=== PATIENT | male | born 1955 | race Caucasian/White ===

== ENCOUNTER 2019-10-23 09:24 | Outpatient (CLI) | payer OTHER, SELFPAY ==
--- NOTE | 2019-10-23 09:39 | XRR_ITS ---
PROCEDURE INFORMATION: Exam: XR Left Shoulder Exam date and time: 10/23/2019 9:50 AM Age: 63 years old Clinical indication: Pain; Shoulder; Left; Prior surgery; Surgery type: Pacemaker; Additional info: Frozen shoulder, pain x 2 months TECHNIQUE: Imaging protocol: XR Left shoulder. Views: 2 or more views. COMPARISON: No relevant prior studies available. FINDINGS: Limitations: Portion of the osseous structures of the left shoulder girdle are obscured by a pacemaker generator. Bones/joints: No fracture. No dislocation. Soft tissues: There is calcific tendinitis involving the rotator cuff. XR/XR shoulder LT min 2V* [id number] IMPRESSION: Calcific tendinitis.
== END 2019-10-23 09:25 | disposition home or self-care (01) ==
LOC: RAD 09:32
PROVIDERS: Family Provider Family Medicine Adult Medicine; PCP Family Medicine Adult Medicine; Visit Provider Internal Medicine Cardiovascular Disease
DX: M75.32 Calcific tendinitis of left shoulder (principal); R29.898 Other symptoms and signs involving the musculoskeletal system
CPT/HCPCS: 73030

== ENCOUNTER 2019-11-02 10:41 | Outpatient (RCR) | payer OTHER, SELFPAY | END 2019-11-24 23:59 | disposition home or self-care (01) | LOC: CR 10:41 | PROVIDERS: Family Provider Family Medicine Adult Medicine; PCP Family Medicine Adult Medicine; Referring Provider Internal Medicine Cardiovascular Disease; Visit Provider Internal Medicine Cardiovascular Disease | DX: Z01.89 Encounter for other specified special examinations (principal) | CPT/HCPCS: 93798 ==

== ENCOUNTER 2020-02-17 09:13 | Outpatient (RCR) | payer OTHER, SELFPAY | END 2020-02-23 23:59 | disposition home or self-care (01) | LOC: SPT 09:13 | PROVIDERS: PCP Emergency Medicine Emergency Medical Services; Referring Provider Emergency Medicine Emergency Medical Services; Visit Provider Emergency Medicine Emergency Medical Services | DX: M25.512 Pain in left shoulder (principal) | CPT/HCPCS: 97110; 97162 ==

== ENCOUNTER 2020-02-24 06:00 | Outpatient (RCR) | payer OTHER, SELFPAY | END 2020-03-25 23:59 | disposition home or self-care (01) | LOC: SPT 06:00 | PROVIDERS: PCP Emergency Medicine Emergency Medical Services; Referring Provider Emergency Medicine Emergency Medical Services; Visit Provider Emergency Medicine Emergency Medical Services | DX: M25.512 Pain in left shoulder (principal) | CPT/HCPCS: 97110 ==

== ENCOUNTER 2020-03-26 06:00 | Outpatient (RCR) | payer OTHER, SELFPAY | END 2020-04-12 09:18 | disposition home or self-care (01) | LOC: SPT 06:00 | PROVIDERS: PCP Emergency Medicine Emergency Medical Services; Referring Provider Emergency Medicine Emergency Medical Services; Visit Provider Emergency Medicine Emergency Medical Services | DX: M25.512 Pain in left shoulder (principal); M54.2 Cervicalgia | CPT/HCPCS: 97110 ==

== ENCOUNTER → 2020-05-25 15:45 | Outpatient (BNVA) | payer OTHER, SELFPAY | PROVIDERS: PCP Emergency Medicine Emergency Medical Services; Visit Provider Thoracic Surgery (Cardiothoracic Vascular Surgery) | DX: T81.41XA Infection following a procedure, superficial incisional surgical site, initial encounter (principal); Y83.8 Other surgical procedures as the cause of abnormal reaction of the patient, or of later complication, without mention of misadventure at the time of the procedure | CPT/HCPCS: 84450; 87070 ==

== ENCOUNTER 2020-06-02 09:33 | Outpatient (CLI) | payer OTHER, SELFPAY ==
--- NOTE | 2020-06-02 09:39 | XR_ITS ---
WS: [id number] XR chest 2V* [id number] REASON FOR EXAM: CABG FINDINGS: Compared to the chest examination of 07/27/2019. No significant interval change is noted. There is a battery pack over the left anterolateral chest with pacemaker leads to the right atrium and right charisse tricular apex. The heart is at the upper limits of normal in size. There is an eventration of the lef t hemidiaphragm. No active pulmonary parenchymal or pleural disease is noted. XR/XR chest 2V* [id number] IMPRESSION: Stable chest as above.
--- NOTE | 2020-06-06 16:50 | ANES.PREANE2 ---
Pre-Anesthetic Assessment Pre-Anesthetic Assessment: Height/Weight: Height 1.96 m Preop Diagnosis: sternal wound Proposed Procedure: sternal I&D Was Beta Devyn taken within 24 hours: N/A Last Intake: 07:00 Social: Social History: No tobacco (1/2) Packs per day: 1/2 Pack years: 52 Exam: Pre-Anes Outpt Exam: alert, oriented x 3, clear to auscultation bilaterally (exp wheezes noted) and regular rate & rhythm Airway: Submandibular: WNL Cervical ROM: WNL MP: 2 Dentition: False (upper, with few lowers) Pulmonary: Pulmonary: None reported CV/HEM: CV/HEM: Arrythmia (WPW), CAD, CHF and AR Comments: CABG x4 May 2019. No CP/SOB since CABG : : None reported Hepatic: Hepatic: None reported GI: GI: None reported Metabolic: Metabolic: None reported Musc/skel: Musc/skel: Lower Back Pain (use ayala) and OA/DJD Neuropsych: Neuropsych: None reported Anesthetic Plan: ASA status: 3E Anesthesia: Anesthesia Evaluation, General and MAC PFSH Anesthesia PFSH: Medical History CHF (congestive heart failure) Hypertension Pacemaker Xedhu-Yyzxepfxs-Nchli (WPW) syndrome Surgical History S/P CABG x 4 Family History Other Cancer Social History Smoking and tobacco status: current some day smoker Alcohol intake: never Data Anesthesia Cardiac Studies: No Data to Display
== END 2020-06-02 09:34 | disposition home or self-care (01) ==
LOC: RAD 09:36
PROVIDERS: PCP Emergency Medicine Emergency Medical Services; Visit Provider Thoracic Surgery (Cardiothoracic Vascular Surgery)
DX: Z95.1 Presence of aortocoronary bypass graft (principal)
CPT/HCPCS: 71046

== ENCOUNTER 2020-06-06 19:39 | Observation (INO) | payer OTHER, SELFPAY ==
[2020-06-06] VITALS (12 sets, daily range): BP systolic 101–137; BP diastolic 56–90; PULSE 62–83; RESP 16–20; TEMP 36.3–36.9; O2SAT 93–99; BMI 34.7
[2020-06-06] MEDS: sodium chloride 0.9% 1,000 ML 30 ML IV (18:09)
--- NOTE | 2020-06-06 18:10 | P.HP_ITS ---
Providers/Chief Complaint Primary Care Provider: Skip Sanchez DO Chief Complaint: infusion History of Present Illness Trenton Enamorado is a 64 year old male who is admitted today after being seen in the heart care clinic because of 2 new abscesses which developed in the mid one third of her sternotomy incision. He is status post CABG x4 back in May 2019. He did well postoperatively though due to continued bradycardia dual-lead pacemaker system was implanted and has done well since that time. He did have a small area 2 x 1 cm abscess at the superior margin of the sternotomy incision which was opened and healed after this back in August. He represented about 2 weeks ago with a new lesion in the upper mid one third of the sternotomy wound which underwent I&D in the clinic, again with minimal purulence and no foreign body identified. This was treated with wet-to-dry dressings. Chest x-ray reveals well aligned wires with no effusions or infiltrates. No foreign bodies that are unexpected were found. He presented back to clinic today, now with 2 new areas of abscess inferior to the more superior wound which underwent I&D 2 weeks ago. The superior wound is very clean and appears to be healing well but these new wounds developed as he stated on Saturday, a day today and a half ago. As I feel these probably communicate I feel this should be opened in the operating room to allow for appropriate instrumentation, sedation, and lighting. Therefore I will have him plan for direct admission for expeditious incision and drainage of these new abscess areas. He does have quite a bit of hair over his chest in this region and this may actually be related to some type of ingrowth into the sternotomy scar. He has no systemic symptoms. The remainder of his exam is unremarkable. Review of Systems Const: Denies: fever(s), chills, change in appetite, change in weight, fatigue or night sweats Eyes: Denies: change in vision or blurry vision ENMT: Denies: odynophagia or hoarseness Card: Denies: chest pain, palpitations, irregular heart rhythm or edema Resp: Denies: dyspnea or productive cough GI: Denies: abdominal pain, nausea, vomiting, dysphagia, heartburn or change in bowel habits : Denies: difficulty urinating, dysuria, urinary frequency, urinary urgency or urinary hesitancy Musc: Denies: extremity pain or extremity swelling Skin/Breast: Denies: rash Neuro: Denies: headache(s), numbness in extremities, weakness in extremities or sensory changes Psych: Denies: anxiety, depression or change in appetite Endo: Denies: polyuria, polydipsia or cold intolerance Gregg/Lymph: Denies: easy bruising, easy bleeding, petechiae or enlarged lymph nodes Medications/Allergies Home Medications Medication Instructions Recorded Confirmed Last Taken Type aspirin 81 mg tablet,delayed 81 mg PO DAILY tab 09/08/19 06/06/20 06/06/20 History release hydrocodone 7.5 mg-acetaminophen 1 tab PO BID PRN 09/08/19 06/06/20 06/06/20 History 325 mg tablet rosuvastatin 40 mg tablet 40 mg PO DAILY tab 09/08/19 06/06/20 06/06/20 History potassium chloride 20 mEq 20 meq PO BID tab 09/10/19 06/06/20 06/06/20 History tablet,extended release sacubitril 49 mg-valsartan 51 mg 1 tab PO BID #60 tab 01/13/20 06/06/20 06/06/20 Rx tablet furosemide 40 mg tablet 40 mg PO BID #180 tab 04/20/20 06/06/20 06/06/20 Rx Allergies Allergy/AdvReac Type Severity Reaction Status Date / Time No Known Allergies Allergy Verified 06/06/20 17:13 PFSH Acute PFSH: Medical History (Updated 06/06/20 @ 18:14 by Kyrie Pandya MD) CHF (congestive heart failure) Hypertension Pacemaker Yhrih-Wgnjrdfmm-Imfhp (WPW) syndrome Surgical History S/P CABG x 4 Family History Other Cancer Social History Smoking and tobacco status: current some day smoker Alcohol intake: never Vitals/I&O/Wt Weight last 48 hrs Weight 293 lb Weight 293 lb Physical Exam Const: COMMON NORMALS: patient oriented x3 and alert ORIENTATION/CONSCIOUSNESS: Yes oriented to person, Yes oriented to place and Yes oriented to time HENMT: COMMON NORMALS: normocephalic HEAD & SCALP: normocephalic; no cranial bruits Neck/C-Spine: COMMON NORMALS: full ROM, supple, no JVD and No carotid bruits GENERAL: Yes trachea midline CERVICAL SPINE: Yes cervical ROM normal Chest: COMMONS NORMALS: normal palpation of entire chest wall; negative for normal inspection of the chest OTHER: There are 2 areas 2 x 2 cm which are fluctuant and located in the mid one third of the sternotomy wound and about 3 cm inferior to a previous I&D wound performed just over 1 week ago. Th rocio are fluctuant with mild erythema but no local heat. Chest wall is otherwise very stable. Chest images (male): 1. No superior wound has undergone prior I&D. Has early granulation tissue. It appears to be healing. 2. New abscessed region with slight drainage and mild fluctuation. 3. Most inferior abscess is smaller and without drainage. 4. Well-healed pacemaker incision. Resp: COMMON NORMALS: normal respiratory effort, No use of accessory muscles, clear to auscultation bilaterally and percussion normal EFFORT & INSPECTION: Yes able to speak in complete sentences and Yes symmetric chest movement AUSCULTATION: clear to auscultation bilaterally PERCUSSION: percussion normal Cardio: COMMON NORMALS: no JVD, regular rate, regular rhythm, S1 normal heart sound present, S2 normal heart sound present, No gallops present (Cardio), No murmurs present (Cardio), No rub (Cardio) and Peripheral pulses 2+ throughout JUGULAR VENOUS DISTENTION: no JVD RATE: regular rate RHYTHM: regular rhythm HEART SOUNDS: S1 normal heart sound present and S2 normal heart sound present PERIPHERAL PULSES: Peripheral pulses 2+ throughout Extremity: COMMON NORMALS: full ROM, no clubbing, cyanosis or edema and no pedal edema Neuro: COMMON NORMALS: patient oriented x3, no focal motor deficits and no sensory deficits noted SENSORIUM/ORIENTATION: Yes alert, Yes oriented to person, Yes oriented to place and Yes oriented to time GAIT: Yes Normal gait present Psych: COMMON NORMALS: mental status grossly normal A&P Assessment and plan (1) Abscess after procedure: We will plan for local incision and drainage under appropriate sedation and with appropriate instrumentation in the operating room theater. We will residential recycle driver 1 g of vancomycin empirically now. Depending on the extent of the communication between the 2 abscess areas we may proceed either with wet-to-dry dressing changes or with consideration for a wound VAC if it is fairly extensive. I discussed the rationale for this carefully with Mr. Enamorado and his . And they are in agreement. Proper consents have been provided for review and signature. Status: Acute Attestations Medical Necessity Statement*: Incisional abscess with recurrent Time Spent in Patient Care: Greater than 35 minutes Coding Level of Care Code Acute Executive Compensation Analyst for [facility] Fwd Diagnoses Abscess after procedure T81.49XA
[2020-06-06 18:14] LABS: Basophils % 0.3 %; Eosinophils # 0.2 10^3/uL (0.0-0.8); Eosinophils % 2.3 %; Hematocrit 41.3 % (42.0-52.0); Hemoglobin 13.8 g/dL (11.7-16.6); Lymphocytes # 2.2 10^3/uL (0.8-4.8); Lymphocytes % 30.3 %; Mean Corpuscular HGB Conc 33.4 g/dL (30.0-36.0); Mean Corpuscular Hemoglobin 34.3 pg (28.0-34.0); Mean Corpuscular Volume 102.7 fL (80-94); Mean Platelet Volume 9.8 fL (7.4-10.4); Monocytes # 0.6 10^3/uL (0.2-0.9); Monocytes % 8.1 %; Neutrophils # 4.34 10^3/uL (1.8-7.7); Neutrophils % 58.6 %; Nucleated Red Blood Cells % 0 %; Platelet Count 170 10^3/cmm (130-400); Red Blood Count 4.02 10^6/uL (4.1-5.3); Red Cell Distribution Width 12.9 % (12.1-15.1); White Blood Count 7.4 10^3/uL (4.0-10.0)
[2020-06-06] MEDS: vancomycin 1,000 MG in sodium chloride 0.9% 250 ML 250 MG IV (18:15)
[2020-06-06] MEDS: midazolam 1 mg/mL INJ 2 mL 2 MG IVP (18:18)
[2020-06-06 18:28] LABS: Alanine Aminotransferase 27 U/L (0-41); Alkaline Phosphatase 75 IU/L (40-130); Blood Urea Nitrogen 12 mg/dL (8-23); Calcium 9.4 mg/dL (8.5-10.5); Carbon Dioxide 25 mmol/L (22-29); Chloride 99 mmol/L (98-107); Globulin 2.9 g/dL (1.3-4.6); Glomerular Filtration Rate 75.7 mL/min (90-130); Glucose 99 mg/dL (65-115); Osmolality Calculated 280 mOsm/kg (285-295); Sodium 135 mmol/L (136-145); Total Bilirubin 0.3 mg/dL (0.15-1.2); Total Protein 6.9 g/dL (6.6-8.7)
[2020-06-06 18:32] LABS: Anion Gap 15.6 (5-19); Aspartate Amino Transferase 29 U/L (0-40); Potassium 4.6 mmol/L (3.5-5.1)
[2020-06-06] MEDS: lidocaine 1% INJ 20 mL SUBCUT (18:59)
[2020-06-06] MEDS: vancomycin 1,000 MG SDV 3000 MG XX (18:59)
--- NOTE | 2020-06-06 19:36 | PM.PACU ---
PACU note PACU note: good resp effort Post-Anesthesia Exam: awake and vital signs stable Disposition: admitted
[2020-06-06] MEDS: fentaNYL 50 mcg/mL INJ 2mL IVP ×2 (19:42→19:47)
[2020-06-06] MEDS: cefTRIAXone 1,000 MG in sodium chloride 0.9% (plus) 50 ML 100 MG IV (20:54)
[2020-06-06] MEDS: cetylpyridinium Lozenge 1 EACH MUCOUS MEM (20:54)
[2020-06-06 20:57] LABS: Glucose Point of Care 117 mg/dL (70-110)
--- NOTE | 2020-06-06 21:37 | PC.PHAR ---
Vancomycin is dosed at 2000mg IVPB every 12 hours to produce a predicted trough level of 12.64 (population based pharmacokinetic analysis). A trough level has been ordered from the lab to be obtained before the fourth dose to confirm and adjust if needed.
[2020-06-06] MEDS: ketorolac 30 mg/mL INJ IVP (21:38)
[2020-06-06] MEDS: HYDROcodone-acetaminophen 7.5-325 mg Tablet 1 TAB PO (21:38)
[2020-06-07 01:30] VITALS: BP 119/62; PULSE 74; RESP 17; TEMP 36.8; O2SAT 97
[2020-06-07 03:58] VITALS: BP 112/72; PULSE 60; RESP 18; TEMP 36.5; O2SAT 95
[2020-06-07] MEDS: ketorolac 30 mg/mL INJ IVP (05:34)
--- NOTE | 2020-06-07 06:06 | P.OP_ITS ---
Operative Report Date of procedure: June 06, 2020 Pre-op Diagnosis: sternal wound Post-op diagnosis: same Procedure Done: Incision and drainage of subcutaneous abscess prior sternotomy Specimens removed/disposition: Cultures x2 Pathology: none sent Surgeon: Kyrie Pandya Anesthesia: MAC Complications: None Findings: 3 distinct septated abscesses with tunneling and communication Condition: stable Disposition: PACU Brief History: Mr. Enamorado is a 64-year-old gentleman who underwent CABG x4 back in May 2019. He presented in August with a small superior abscess which was opened and drained and healed without incident. He now he presents with 2 more similar findings more inferiorly. Given the size and location, I have recommended operative incision and drainage. Details and risks of surgery were carefully discussed. Proper consents have been reviewed and signed. Procedure: Mr. Enamorado was taken to the operating room theater and carefully position. He received vancomycin 1 g IV. He underwent conscious sedation with anesthesia monitoring. His entire chest was sterilely prepped and draped. 1% lidocaine was infiltrated over the intended region of incision. I initially opened up the most inferior small abscessed region which was in the midportion of the sternotomy scar. Joaquín white purulent material was recovered and cultured. With exploration, it was evident that in a subcutaneous tunnel, this area of abscess communicated with the more superior 1 and also the one more superior than that which had been previously opened. All 3 areas were connected in line utilizing a #10 scalpel blade. This did extend down to near the sternal table though there were no exposed wires. The sternum itself has healed well. Large volume irrigation was then performed and confirmation that all subcutaneous tracts have been open. Again, the sternum or sternal wires were not visualized. Following this, wet-to-dry dressing was then applied. Mr. Enamorado was then waken from conscious ideation with stable vital signs. He was transported to the recovery area. I did residential substance abuse counselor with his at the completion of the procedure.
--- NOTE | 2020-06-07 06:49 | PM.PN ---
Subjective Subjective: Interval history: Mr. Enamorado had a very good night. He has no complaints this morning. He was up in chair on rounds. Postop surgical dressing remains dry. Afebrile. Vital signs stable. Vitals/I&O/Wt Last Vital Signs Temp 97.7 F 06/07/20 03:58 Pulse 60 06/07/20 03:58 Resp 18 06/07/20 03:58 BP 112/72 06/07/20 03:58 Pulse Ox 95 06/07/20 03:58 06/06/20 06/06/20 06/07/20 14:59 22:59 06:59 Intake Total 240 / 240 240 / 480 Output Total 75 / 75 250 / 325 Balance 165 / 165 -10 / 155 Weight last 48 hrs Weight 293 lb Weight 293 lb Physical Exam Chest: OTHER: Chest wall is stable. His surgical dressing is in place. Resp: COMMON NORMALS: normal respiratory effort, No use of accessory muscles and clear to auscultation bilaterally AUSCULTATION: clear to auscultation bilaterally Cardio: COMMON NORMALS: regular rate, regular rhythm, S1 normal heart sound present, No gallops present (Cardio) and No rub (Cardio) RATE: regular rate RHYTHM: regular rhythm HEART SOUNDS: S1 normal heart sound present Data : 06/06/20 16:40 06/06/20 16:40 A&P Assessment and plan (1) Abscess after procedure: Postop day #1 status post I&D of sternotomy scar abscess. Plan: We will plan to discharge to home today with planned daily wet-to-dry dressing changes. We will attempt to make arrangements for follow-up and wound care services if possible. We will also attempt to arrange home health services if possible. If these cannot be arranged, he will follow-up in my clinic at [facility] in 1 week. Pending final culture results, I will place him on Bactrim DS 1 p.o. twice daily for the next 10 days. Status: Acute Attestations Medical Necessity Statement*: Postop day #1 status post incision and drainage of sternotomy scar abscesses. 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
--- NOTE | 2020-06-07 07:04 | PM.DCS ---
Discharge Providers Date of Admission: 06/06/20 19:39 Date of Discharge: June 07, 2020 Attending Provider at Admission: Kyrie Pandya MD Attending Provider at Discharge: Kyrie Pandya MD Primary Care Provider: Skip Sanchez DO Diagnoses at Discharge Discharge Diagnosis (1) Abscess after procedure: Status: Acute Reason for Visit Reason for Visit: infusion Hospital Course Discharge Summary: Kelsea is status post CABG x4 back in May 2019. He has developed abscesses along his sternotomy scar. Initially this was in August of this year most superiorly. Over the past 2 and half weeks she developed 3 new areas in the mid one third of the sternotomy wound. I elected to admit him overnight from the clinic yesterday and perform an incision and drainage last night. The 3 small abscess areas did connect subcutaneously and they were incised into 1 wound. This did extend out rather deep but not to the sternal table and there were no exposed wires. He is receiving wet-to-dry dressing changes. Wound culture results are pending. He will be placed on Bactrim DS twice daily pending results. He is otherwise doing well. He will be discharged to home today with plans for daily wet-to-dry dressing changes. We will attempt to have him followed up at the [facility] wound care clinic to allow for advanced wound care modalities. This [facility] If not, I will follow him at [facility] on a weekly basis. His will be instructed to do dressing changes prior to discharge. At the time of discharge, he is in stable condition. Physical Exam Chest: OTHER: Chest wall is stable. Chest x-ray is clear. Sternotomy is well-healed. The 3 abscessed areas have been communicated together down through an incision. The bed remains clean. Wet-to-dry dressing changes will be performed daily. Resp: COMMON NORMALS: normal respiratory effort, No use of accessory muscles and clear to auscultation bilaterally AUSCULTATION: clear to auscultation bilaterally Cardio: COMMON NORMALS: regular rate, regular rhythm, S1 normal heart sound present, No gallops present (Cardio) and No rub (Cardio) RATE: regular rate RHYTHM: regular rhythm HEART SOUNDS: S1 normal heart sound present Discharge Data Data Completed and Pending: Pending at discharge Category Date Time Status Abscess Culture a nd Gram Stain Stat Lab 06/06/20 18:59 Received Anaerobic Culture Stat Lab 06/06/20 18:59 Received Vancomycin Trough Timed Lab 06/08/20 11:00 Ordered Labs from last 24 hours 06/06/20 06/06/20 06/06/20 20:50 16:40 16:40 WBC 7.4 RBC 4.02 L Hgb 13.8 Hct 41.3 L MCV 102.7 H MCH 34.3 H MCHC 33.4 RDW 12.9 Plt Count 170 MPV 9.8 Neut % (Auto) 58.6 Lymph % (Auto) 30.3 [place] % (Auto) 8.1 Eos % (Auto) 2.3 Baso % (Auto) 0.3 Neut # (Auto) 4.34 Lymph # (Auto) 2.2 [place] # (Auto) 0.6 Eos # (Auto) 0.2 Baso # (Auto) 0.0 Nucleated RBC % (a uto) 0 Nucleated RBCs # 0.0 Sodium 135 L Potassium 4.6 Chloride 99 Carbon Dioxide 25 Anion Gap 15.6 BUN 12 Creatinine 1.0 GFR Calculation 75.7 L Glucose 99 POC Glucose 117 Calculated Osmolal ity 280 L Calcium 9.4 Total Bilirubin 0.3 AST 29 ALT 27 Alkaline Phosphata se 75 Total Protein 6.9 Albumin 4.0 Globulin 2.9 Vitals: Last Vital Signs Temp 97.7 F 06/07/20 03:58 Pulse 60 06/07/20 03:58 Resp 18 06/07/20 03:58 BP 112/72 06/07/20 03:58 Pulse Ox 95 06/07/20 03:58 Discharge Plan Discharge Patient Disposition: Home Condition: Stable Prescriptions: New hydrocodone-acetaminophen 5-325 mg tablet 1 tab PO Q8H PRN (Reason: pain) 7 Days Qty: 21 RF: 0 sulfamethoxazole-trimethoprim [Bactrim DS] 800-160 mg tablet 1 tab PO BID 10 Days Qty: 20 RF: 0 Continued aspirin 81 mg tablet,delayed release (DR/EC) 81 mg PO DAILY RF: 0 rosuvastatin 40 mg tablet 40 mg PO DAILY RF: 0 hydrocodone-acetaminophen 7.5-325 mg tablet 1 tab PO BID PRN (Reason: Pain) RF: 0 potassium chloride 20 mEq tablet extended release 20 meq PO BID RF: 0 Entresto 49-51 mg tablet 1 tab PO BID Qty: 60 RF: 4 furosemide 40 mg tablet 40 mg PO BID Qty: 180 RF: 3 Discharge Orders: Discharge Order (Routine); Ordered 06/07/20 Ordered By: Kyrie Pandya Referrals: [facility] [Provider Group] - 4-7 days (If unable to obtain wound clinic appointment) [facility] [Staff Physician] - 4-7 days Discharge Diet: Usual diet Discharge Activity: Limit activity as instructed Activity Restrictions/Additional Instructions: Wet to dry dressing changes daily No swimming or tub baths Discharge Attestations Time Spent in Discharge Care*: less than 30 min Specific Discharge Activities: Specific discharge activities: educating patient, educating and/or supporting family/caregiver, discussing with telephonic case manager/social workers/dc planners, documenting/other paperwork and evaluating patient/reviewing data Status at Discharge: Cognitive status at discharge: cognitively intact, Behavioral status at discharge: cooperative and independent in ADL's, Functional status at discharge: independent ambulation Overall status at discharge: patient is back to baseline Quality Metrics Clinical Quality Measures During this hospital stay, did patient experience: None Coding Level of Care Code Acute Primary Health Organisation Manager for [facility] Fwd Diagnoses Abscess after procedure T81.49XA
[2020-06-07] MEDS: cefTRIAXone 1,000 MG in sodium chloride 0.9% (plus) 50 ML 100 MG IV (07:23)
[2020-06-07 07:24] VITALS: BP 112/72; PULSE 60; RESP 18; TEMP 36.5; O2SAT 95
[2020-06-07 07:55] VITALS: BP 125/86; PULSE 58; RESP 18; TEMP 36.6; O2SAT 96
--- NOTE | 2020-06-07 08:00 | PC.NURSE ---
SURGICAL NURSE TO FLOOR TO EDUCATE AND PATIENT ON DRESSING CHANGES.
--- NOTE | 2020-06-07 08:10 | ANE.PACU2 ---
Inpatient post-anesthesia follow up: Airway intact: Yes Vital signs: Temperature 97.8 F Pulse Rate 58 Respiratory Rate 18 Blood Pressure 125/86 Pulse Oximetry 96 Oxygen Delivery Me thod Room Air Oxygen Flow Rate Fraction of Inspir ed Oxygen Hydration adequate: Yes Nausea and vomiting: No Pain level: 1 Mental status: Baseline
== END 2020-06-07 08:42 | disposition home or self-care (01) ==
LOC: MEDSURG 06-07 04:50
PROVIDERS: Admitting Provider Thoracic Surgery (Cardiothoracic Vascular Surgery); PCP Emergency Medicine Emergency Medical Services; Visit Provider Thoracic Surgery (Cardiothoracic Vascular Surgery)
PROC: (CPT 10061; principal; 2020-06-06 17:00)
DX: S21.109A Unspecified open wound of unspecified front wall of thorax without penetration into thoracic cavity, initial encounter (principal); X58.XXXA Exposure to other specified factors, initial encounter; T81.49XA Infection following a procedure, other surgical site, initial encounter; Z95.1 Presence of aortocoronary bypass graft; Z79.82 Long term (current) use of aspirin; I11.0 Hypertensive heart disease with heart failure; I50.9 Heart failure, unspecified; Z95.0 Presence of cardiac pacemaker; F17.210 Nicotine dependence, cigarettes, uncomplicated
CPT/HCPCS: 10061; 12345; 36415; 36416; 80053; 82962; 85025; 87070; 87075; 87077; 87205; 96365; 96366; 96375; G0378; J0696; J1885; J2250; J2704; J3010; J3370; J7030; J7040; J7050

== ENCOUNTER 2020-06-14 08:15 | Outpatient (CLI) | payer OTHER, SELFPAY | END 2020-06-14 08:16 | disposition home or self-care (01) | LOC: WOUND 08:19 | PROVIDERS: PCP Emergency Medicine Emergency Medical Services; Visit Provider Thoracic Surgery (Cardiothoracic Vascular Surgery) | DX: T81.89XA Other complications of procedures, not elsewhere classified, initial encounter (principal) | CPT/HCPCS: 11042; 11045; G0463 ==

== ENCOUNTER 2020-06-21 09:05 | Outpatient (CLI) | payer OTHER, SELFPAY | END 2020-06-21 09:06 | disposition home or self-care (01) | LOC: WOUND 09:06 | PROVIDERS: PCP Emergency Medicine Emergency Medical Services; Visit Provider Thoracic Surgery (Cardiothoracic Vascular Surgery) | DX: L98.492 Non-pressure chronic ulcer of skin of other sites with fat layer exposed (principal) | CPT/HCPCS: 11043; 11046; 97605 ==

== ENCOUNTER 2020-06-28 10:05 | Outpatient (CLI) | payer OTHER, SELFPAY | END 2020-06-28 10:06 | disposition home or self-care (01) | LOC: WOUND 10:06 | PROVIDERS: PCP Emergency Medicine Emergency Medical Services; Visit Provider Thoracic Surgery (Cardiothoracic Vascular Surgery) | DX: T81.89XA Other complications of procedures, not elsewhere classified, initial encounter (principal) | CPT/HCPCS: 11042 ==

== ENCOUNTER 2020-07-05 10:07 | Outpatient (CLI) | payer OTHER, SELFPAY | END 2020-07-05 10:08 | disposition home or self-care (01) | LOC: WOUND 10:07 | PROVIDERS: PCP Emergency Medicine Emergency Medical Services; Visit Provider Thoracic Surgery (Cardiothoracic Vascular Surgery) | DX: T81.89XA Other complications of procedures, not elsewhere classified, initial encounter (principal) | CPT/HCPCS: 11042 ==

== ENCOUNTER 2020-07-12 10:53 | Outpatient (CLI) | payer OTHER, SELFPAY | END 2020-07-12 10:54 | disposition home or self-care (01) | LOC: WOUND 10:53 | PROVIDERS: PCP Emergency Medicine Emergency Medical Services; Visit Provider Nurse Practitioner Family | DX: L98.492 Non-pressure chronic ulcer of skin of other sites with fat layer exposed (principal) | CPT/HCPCS: 11042 ==

== ENCOUNTER 2020-07-19 07:57 | Outpatient (CLI) | payer OTHER, SELFPAY | END 2020-07-19 07:58 | disposition home or self-care (01) | LOC: WOUND 07:58 | PROVIDERS: PCP Emergency Medicine Emergency Medical Services; Visit Provider Nurse Practitioner Family | DX: L98.493 Non-pressure chronic ulcer of skin of other sites with necrosis of muscle (principal) | CPT/HCPCS: 11042 ==

== ENCOUNTER 2020-07-26 08:03 | Outpatient (CLI) | payer OTHER, SELFPAY | END 2020-07-26 08:04 | disposition home or self-care (01) | LOC: WOUND 08:03 | PROVIDERS: PCP Emergency Medicine Emergency Medical Services; Visit Provider Thoracic Surgery (Cardiothoracic Vascular Surgery) | DX: L98.492 Non-pressure chronic ulcer of skin of other sites with fat layer exposed (principal) | CPT/HCPCS: 11042 ==

== ENCOUNTER 2020-08-02 07:51 | Outpatient (CLI) | payer OTHER, SELFPAY | END 2020-08-02 07:52 | disposition home or self-care (01) | LOC: WOUND 07:52 | PROVIDERS: PCP Emergency Medicine Emergency Medical Services; Visit Provider Thoracic Surgery (Cardiothoracic Vascular Surgery) | DX: L98.492 Non-pressure chronic ulcer of skin of other sites with fat layer exposed (principal) | CPT/HCPCS: 11042 ==

== ENCOUNTER 2020-08-16 07:54 | Outpatient (CLI) | payer OTHER, SELFPAY | END 2020-08-16 07:55 | disposition home or self-care (01) | LOC: WOUND 07:56 | PROVIDERS: PCP Emergency Medicine Emergency Medical Services; Visit Provider Nurse Practitioner Family | DX: T81.89XA Other complications of procedures, not elsewhere classified, initial encounter (principal) | CPT/HCPCS: 11042 ==

== ENCOUNTER 2020-08-23 07:49 | Outpatient (CLI) | payer OTHER, SELFPAY | END 2020-08-23 07:50 | disposition home or self-care (01) | LOC: WOUND 07:51 | PROVIDERS: PCP Emergency Medicine Emergency Medical Services; Visit Provider Nurse Practitioner Family | DX: T81.89XA Other complications of procedures, not elsewhere classified, initial encounter (principal); Y83.8 Other surgical procedures as the cause of abnormal reaction of the patient, or of later complication, without mention of misadventure at the time of the procedure | CPT/HCPCS: 11042 ==

== ENCOUNTER 2020-08-30 08:23 | Outpatient (RCR) | payer OTHER, SELFPAY | END 2020-09-25 23:59 | disposition home or self-care (01) | LOC: WOUND 08:23 | PROVIDERS: PCP Emergency Medicine Emergency Medical Services; Visit Provider Thoracic Surgery (Cardiothoracic Vascular Surgery) | DX: Z09 Encounter for follow-up examination after completed treatment for conditions other than malignant neoplasm (principal) | CPT/HCPCS: 99212 ==

== ENCOUNTER → 2021-11-15 10:45 | Outpatient (BNVA) | payer OTHER, SELFPAY | PROVIDERS: PCP Family Medicine Adult Medicine; Visit Provider Internal Medicine Cardiovascular Disease | DX: R53.1 Weakness (principal); Z95.1 Presence of aortocoronary bypass graft; I11.0 Hypertensive heart disease with heart failure; I50.22 Chronic systolic (congestive) heart failure; I25.10 Atherosclerotic heart disease of native coronary artery without angina pectoris | CPT/HCPCS: 99214 ==

== ENCOUNTER → 2022-05-22 11:06 | Outpatient (BNVA) | payer OTHER, SELFPAY | PROVIDERS: PCP Family Medicine Adult Medicine; Visit Provider Internal Medicine Cardiovascular Disease | DX: I50.9 Heart failure, unspecified (principal); R06.02 Shortness of breath; Z95.0 Presence of cardiac pacemaker; I11.0 Hypertensive heart disease with heart failure; I25.10 Atherosclerotic heart disease of native coronary artery without angina pectoris; Z95.1 Presence of aortocoronary bypass graft; R53.1 Weakness; R25.1 Tremor, unspecified; F17.200 Nicotine dependence, unspecified, uncomplicated | CPT/HCPCS: 71046; 99214 ==

== ENCOUNTER 2022-07-30 12:31 | Outpatient (CLI) | payer OTHER, SELFPAY ==
--- NOTE | 2022-07-30 13:00 | USCV_ITS ---
Trenton Enamorado Age: 66 Gender: M : 1955 Exam Date: 07/30/2022 13:10 Ordering Phys: Krystal Sher MD ([email or web address]) Technologist: Grey Sosa Exam Location: [facility] [place] Indication: SOB/ CHF BP: 126 / 64 HR: 55 Rhythm: Sinus Technical Quality: Technically difficult study MEASUREMENTS (Male / Female) Normal Values 2D ECHO LV Diastolic Diameter PLAX 5.1 cm 4.2 - 5.9 / 3.9 - 5.3 cm LV Systolic Diameter PLAX 3.8 cm IVS Diastolic Thickness 1.1 cm 0.6 - 1.0 / 0.6 - 0.9 cm IVS Systolic Thickness 1.1 cm LVPW Diastolic Thickness 1.2 cm 0.6 - 1.0 / 0.6 - 0.9 cm LVPW Systolic Thickness 1.3 cm LVOT Diameter 2.2 cm LV Ejection Fraction 2D Teich 48.8 % LV Ejection Fraction MOD 2C 55.1 % LV Ejection Fraction 2C AL 56.1 % LA Diameter 3.6 cm LA Width 3.8 cm LA Height 5.3 cm RA Width 4.2 cm RA Height 4.4 cm Aorta at Sinotubular Diameter 2.4 cm IVC Diameter 1.4 cm M-MODE Aortic Annulus Diameter 3.2 cm LA Ao Ratio MM 1.1 MV E Point Septal Separation 0.7 cm DOPPLER AV Peak Velocity 166.7 cm/s LVOT Peak Velocity 112.0 cm/s AV Area Cont Eq vti 2.3 cm squared AV Area Cont Eq pk 2.6 cm squared MV Peak Velocity 109.0 cm/s MV Area PHT 4.0 cm squared Mitral E to A Ratio 0.6 MV E' Velocity 30.5 cm/s Mitral E to MV E' Ratio 6.4 Mitral E to LV E' Lateral Ratio 6.3 Mitral E to LV E' Septal Ratio 6.6 TR Peak Velocity 190.0 cm/s TR Peak Gradient 14.4 mmHg TR Mean Velocity 140.8 cm/s TR Mean Gradient 8.4 mmHg TR Velocity Time Integral 46.9 cm Right Atrial Pressure 3.0 mmHg Pulmonary Artery Systolic Pressu 17.4 mmHg PV Peak Velocity 131.0 cm/s RV Acceleration Time 0.1 s RV Ejection Time 0.2 s RV AcT/ET 0.3 FINDINGS Left Ventricle Normal left ventricular cavity size. Mildly decraesed left ventricular systolic function. Left ventricular ejection fraction is estimated at 50-55 %. No diagnostic regional wall motion abnormalities. Abnormal septal motion consistent with pacemaker. Abnormal diastolic filling pattern on mitral inflow. Right Ventricle Normal right ventricular size and systolic function. Pacemaker wire visualized in the right ventricle. RVSP could not be calculated due to incomplete tricuspid regurgitation velocity profile. Right Atrium Normal right atrial size. Pacemaker wire in the right atrial cavity. Left Atrium Normal left atrial size. Mitral Valve Structurally normal mitral valve. No mitral valve stenosis. No significant mitral valve regurgitation. Aortic Valve Aortic valve not well visualized. No aortic valve stenosis. No aortic valve regurgitation. Tricuspid Valve Structurally normal tricuspid valve. Trace tricuspid valve regurgitation. Pulmonic Valve Pulmonic valve not well visualized. Pericardium No pericardial effusion. No pericardial effusion. Aorta Aorta not well visualized. IVC Normal IVC dimension with >50% respiratory change of the inferior vena cava. CONCLUSIONS 1. Normal left ventricular cavity size. Mildly decreased left ventricular systolic function. Left ventricular ejection fraction is estimated at 50-55 %. No diagnostic regional wall motion abnormalities. Abnormal diastolic filling pattern on mitral inflow. 2. Normal right ventricular size and systolic function. 3. When compared to study dated 06/22/2019, left ventricular systolic function seems to have improved. Krystal Sher MD (Electronically Signed) Final Date: 04 August 2022 18:41 S
== END 2022-07-30 12:32 | disposition home or self-care (01) ==
LOC: RAD 12:35
PROVIDERS: PCP Family Medicine Adult Medicine; Visit Provider Internal Medicine Cardiovascular Disease
DX: I50.9 Heart failure, unspecified (principal); R06.02 Shortness of breath
CPT/HCPCS: 93306

== ENCOUNTER → 2023-02-19 10:31 | Outpatient (BNVA) | payer OTHER, SELFPAY | PROVIDERS: PCP Emergency Medicine Emergency Medical Services; Visit Provider Internal Medicine Cardiovascular Disease | DX: I11.0 Hypertensive heart disease with heart failure (principal); I50.22 Chronic systolic (congestive) heart failure; I25.10 Atherosclerotic heart disease of native coronary artery without angina pectoris; Z95.1 Presence of aortocoronary bypass graft; Z95.0 Presence of cardiac pacemaker; R53.1 Weakness; F17.210 Nicotine dependence, cigarettes, uncomplicated; Z79.82 Long term (current) use of aspirin | CPT/HCPCS: 99214 ==

== ENCOUNTER → 2023-03-08 17:13 | Outpatient (BNVA) | payer OTHER, SELFPAY | PROVIDERS: PCP Emergency Medicine Emergency Medical Services; Visit Provider Internal Medicine Cardiovascular Disease | DX: Z45.010 Encounter for checking and testing of cardiac pacemaker pulse generator [battery] (principal) | CPT/HCPCS: 93296 ==

== ENCOUNTER 2023-04-25 06:53 | Outpatient (CLI) | payer OTHER, SELFPAY ==
--- NOTE | 2023-04-25 07:12 | CT_ITS ---
WS: [id number] CT LUMBAR SPINE, noncontrast. HISTORY: CHRONIC BACK PAIN TECHNIQUE: Contiguous 2.0 mm axial imaging are performed. Sagittal and coronal reformats are submitte d and reviewed. All CT scans at [facility] use at least one of these dose optimization techni ques: automated exposure control; mA and/or kV adjustment per patient size (includes targeted exams w here dose is matched to clinical indication); or iterative reconstruction. IV contrast: None DLP: 1210.45 mGy.cm COMPARISON: None available. Mild straightening of the normal lumbar lordosis. L2 retrolisthesis by 4 mm. Additional mild retrolis thesis of L3 and L4. Severe degenerative disc disease with vacuum disc phenomenon throughout the lumb ar spine. Very slight anterior wedging of L1. Marked disc space narrowing with endplate vertebral bod y osteophytes and facet arthritis. L1-2: Mild annular disc bulging and facet arthritis. L2-3: Marked osteophytic ridging with facet joint arthritis and ligamentum flavum hypertrophy. Osteop hytes encroach upon the ventral thecal sac extending into the subarticular recesses. Moderate to karolina re central, bilateral subarticular recess and moderate foraminal stenosis. L3-4: Mild annular disc bulging with osteophytic ridging. Osteophytes encroach upon the thecal sac an d subarticular recesses. Marked facet arthritis. Moderate central and bilateral subarticular recess s tenosis. Osteophytes encroach upon the traversing nerve roots. Severe bilateral foraminal stenosis, L EFT greater than RIGHT. L4-5: Diffuse annular disc bulging with osteophytic ridging. Facet joint arthritis. Osteophyte encroa chment upon the traversing nerve roots. Moderate central, bilateral subarticular recess and severe bi lateral foraminal stenosis, RIGHT greater than LEFT. There is osteophyte contact on the L4 and L5 ner ve roots. L5-S1: Diffuse osteophytic ridging encroaching upon the ventral thecal sac and the subarticular reces ses. Severe bilateral facet arthritis. Osteophyte contacts the traversing S1 nerve roots. Severe cent ral, bilateral subarticular recess and foraminal stenosis. Patient has a very large abdominal aortic aneurysm aneurysm extends over a length of at least 10 cm. Maximum transverse diameter estimated at 6.5 cm. The entire aorta is not visualized and included on t his examination. Iliac arteries are tortuous and mildly ectatic. Low-attenuation mass RIGHT kidney. C annot be further characterized. IMPRESSION: 1. Severe multilevel degenerative disc disease with vacuum disc phenomenon and large osteophyte ridg ing the vertebral bodies. 2. L2-3: Moderate to severe central, bilateral subarticular recess and moderate foraminal stenosis. 3. L3-4: Moderate central, bilateral subarticular recess and severe bilateral foraminal stenosis, LE FT greater than RIGHT. 4. L4-5: Moderate central, bilateral subarticular recess and severe bilateral foraminal stenosis, RI GHT greater than LEFT. 5. L5-S1: Severe central, bilateral subarticular recess and foraminal stenosis. 6. Multidisc level stenoses due to combination of factors but predominantly due to osteophyte develo pment. 7. Large abdominal aortic aneurysm. Aneurysm is incompletely visualized but this aneurysm has a maxi mum transverse diameter of at least 6.5 cm and extends over a length of [address] angiogram and follow-up with vascular surgery.
--- NOTE | 2023-04-25 07:24 | CT_ITS ---
WS: [id number] CT CERVICAL SPINE HISTORY: CHRONIC BACK PAIN TECHNIQUE: Contiguous 2.0 mm axial imaging performed through the entire cervical spine. Sagittal and coronal reformats also performed. All CT scans at [facility] use at least one of these dose o ptimization techniques: automated exposure control; mA and/or kV adjustment per patient size (include s targeted exams where dose is matched to clinical indication); or iterative reconstruction. DLP: 259.77 mGy.cm COMPARISON: None available. C4 and C5 anterolisthesis by 2.3 mm. Disc spaces are mildly narrowed throughout the cervical spine. N o fractures. Moderate bilateral facet joint arthropathy and narrowing. Lateral masses of C1 and C2 ar e aligned. Normal craniocervical junction. C2-C3: Mild bilateral facet joint arthritis and mild foraminal stenosis. Shallow central disc protrus ion. C3-C4: Moderate bilateral facet joint arthropathy. Moderate bilateral foraminal stenosis and very sli ght central stenosis due to osteophytic ridging. C4-C5: Marked bilateral facet joint arthritis. Asymmetric vertebral body osteophytes encroaching upon the thecal sac greatest on the RIGHT. Moderate to severe bilateral foraminal stenosis. Osteophyte co ntacts the RIGHT lateral thecal sac. C5-C6: Severe bilateral facet joint arthropathy with osteophytic vertebral body ridging. Severe LEFT and moderate RIGHT foraminal stenosis. Small osteophytes contact of the ventral thecal sac. Mild cent ral stenosis. C6-C7: Mild osteophytic ridging with moderate RIGHT and mild LEFT foraminal stenosis. C7-T1: No significant stenosis. Soft tissues are normal. Lung apices are clear. IMPRESSION: 1. C4 and C5 anterolisthesis by 2.3 mm. 2. Multilevel central and foraminal stenoses predominantly due to vertebral body osteophytic ridging and marked facet arthropathy. 3. C3-4: Moderate bilateral foraminal stenosis and mild central stenosis. 4. C4-5: Moderate to severe bilateral foraminal stenosis with osteophyte contacting the RIGHT latera l thecal sac. 5. C5-6: Severe LEFT and moderate RIGHT foraminal stenosis with mild central stenosis. Severe facet joint arthropathy. 6. C6-7: Moderate RIGHT and mild LEFT foraminal stenosis.
== END 2023-04-25 06:54 | disposition home or self-care (01) ==
PROVIDERS: PCP Emergency Medicine Emergency Medical Services; Visit Provider Emergency Medicine Emergency Medical Services
DX: M48.02 Spinal stenosis, cervical region (principal); M25.78 Osteophyte, vertebrae; M47.812 Spondylosis without myelopathy or radiculopathy, cervical region; M51.36 Other intervertebral disc degeneration, lumbar region; M48.061 Spinal stenosis, lumbar region without neurogenic claudication; I71.40 Abdominal aortic aneurysm, without rupture, unspecified; G89.29 Other chronic pain
CPT/HCPCS: 72125; 72131

== ENCOUNTER → 2023-06-12 09:02 | Outpatient (BNVA) | payer OTHER, SELFPAY | PROVIDERS: PCP Emergency Medicine Emergency Medical Services; Referring Provider Emergency Medicine Emergency Medical Services; Visit Provider Psychiatry & Neurology Neurology | DX: R25.1 Tremor, unspecified | CPT/HCPCS: 99203 ==

== ENCOUNTER → 2023-07-30 10:29 | Outpatient (BNVA) | payer OTHER, SELFPAY | PROVIDERS: PCP Emergency Medicine Emergency Medical Services; Visit Provider Internal Medicine Cardiovascular Disease | DX: I11.9 Hypertensive heart disease without heart failure (principal); I50.22 Chronic systolic (congestive) heart failure; I25.810 Atherosclerosis of coronary artery bypass graft(s) without angina pectoris; Z95.1 Presence of aortocoronary bypass graft; Z95.0 Presence of cardiac pacemaker; R53.1 Weakness; F17.200 Nicotine dependence, unspecified, uncomplicated | CPT/HCPCS: 99214 ==

== ENCOUNTER → 2023-11-06 13:50 | Outpatient (BNVA) | payer OTHER, SELFPAY | PROVIDERS: PCP Emergency Medicine Emergency Medical Services; Visit Provider Psychiatry & Neurology Neurology | DX: G20.C Parkinsonism, unspecified (principal); G25.2 Other specified forms of tremor; Z95.0 Presence of cardiac pacemaker; I45.6 Pre-excitation syndrome | CPT/HCPCS: 99212 ==

== ENCOUNTER → 2023-11-08 08:21 | Outpatient (BNVA) | payer OTHER, SELFPAY | PROVIDERS: PCP Emergency Medicine Emergency Medical Services; Visit Provider Internal Medicine Cardiovascular Disease | DX: Z53.9 Procedure and treatment not carried out, unspecified reason (principal) | CPT/HCPCS: 93279 ==

== ENCOUNTER 2023-11-14 09:35 | Outpatient (CLI) | payer OTHER, SELFPAY ==
--- NOTE | 2023-11-14 09:45 | FL_ITS ---
WS: [email or web address] Modified barium swallow, 11/14/2023 Clinical Data: Other dysphagia Comparison: None. Fluoroscopy time: 2min [id number] # of spot films: 1 Findings: The patient had minimal oral residue. There was premature spillage. There was a trace aspiration and a single episode of minimal penetration. There is vallecular residue but it cleared with swallowing. The barium tablet was propelled from the oral cavity into the distal esophagus. Additional swallows o f water were necessary to pass into the stomach. Impression: 1. Minimal oral residue with premature spillage. 2. Trace of aspiration a single episode of minimal penetration. 3. Vallecular residue which cleared with swallowing.
== END 2023-11-14 09:36 | disposition home or self-care (01) ==
LOC: RAD 09:35
PROVIDERS: PCP Emergency Medicine Emergency Medical Services; Visit Provider Emergency Medicine Emergency Medical Services
DX: R13.19 Other dysphagia (principal)
CPT/HCPCS: 74230; 92611

== ENCOUNTER 2023-11-19 13:40 | Outpatient (RCR) | payer OTHER, SELFPAY | END 2023-11-24 23:59 | disposition home or self-care (01) | LOC: SST 13:40 | PROVIDERS: PCP Emergency Medicine Emergency Medical Services; Visit Provider Emergency Medicine Emergency Medical Services | DX: R13.10 Dysphagia, unspecified (principal); R47.9 Unspecified speech disturbances | CPT/HCPCS: 92610 ==

== ENCOUNTER 2023-11-25 06:00 | Outpatient (RCR) | payer OTHER, SELFPAY | END 2023-12-24 23:59 | disposition home or self-care (01) | LOC: SST 06:00 | PROVIDERS: PCP Emergency Medicine Emergency Medical Services; Visit Provider Emergency Medicine Emergency Medical Services | DX: R47.9 Unspecified speech disturbances (principal) | CPT/HCPCS: 92526 ==

== ENCOUNTER → 2024-02-04 10:12 | Outpatient (BNVA) | payer OTHER, SELFPAY | PROVIDERS: PCP Family Medicine; Visit Provider Internal Medicine Cardiovascular Disease | DX: I25.10 Atherosclerotic heart disease of native coronary artery without angina pectoris (principal); Z95.0 Presence of cardiac pacemaker; I11.0 Hypertensive heart disease with heart failure; I50.22 Chronic systolic (congestive) heart failure; E78.5 Hyperlipidemia, unspecified; F17.200 Nicotine dependence, unspecified, uncomplicated | CPT/HCPCS: 99214 ==

== ENCOUNTER → 2024-02-20 11:39 | Outpatient (BNVA) | payer OTHER, SELFPAY | PROVIDERS: PCP Family Medicine; Visit Provider Psychiatry & Neurology Neurology | DX: G20.C Parkinsonism, unspecified (principal); G25.2 Other specified forms of tremor; I45.6 Pre-excitation syndrome; Z95.0 Presence of cardiac pacemaker; I11.0 Hypertensive heart disease with heart failure; I50.9 Heart failure, unspecified | CPT/HCPCS: 99212 ==

== ENCOUNTER → 2024-04-20 13:19 | Outpatient (BNVA) | payer OTHER, SELFPAY | PROVIDERS: PCP Family Medicine; Visit Provider Psychiatry & Neurology Neurology | DX: G20.A1 Parkinson's disease without dyskinesia, without mention of fluctuations; G25.2 Other specified forms of tremor; E78.5 Hyperlipidemia, unspecified; I25.10 Atherosclerotic heart disease of native coronary artery without angina pectoris; R53.1 Weakness; I25.810 Atherosclerosis of coronary artery bypass graft(s) without angina pectoris; I45.6 Pre-excitation syndrome | CPT/HCPCS: 99212; 99214 ==

== ENCOUNTER 2024-04-21 08:57 | Oncology outpatient (recurring) (ONCR) | payer OTHER, SELFPAY ==
[2024-04-21 10:43] LABS: Basophils % 0.5 %; Eosinophils # 0.3 10^3/uL (0.0-0.8); Eosinophils % 7.4 %; Hematocrit 33.4 % (37-53); Lymphocytes # 1.6 10^3/uL (0.8-4.8); Lymphocytes % 39.6 %; Mean Corpuscular HGB Conc 33.5 g/dL (30-55); Mean Corpuscular Volume 113.2 fl (82-101); Mean Platelet Volume 12.4 fL (7.4-10.4); Monocytes # 0.3 10^3/uL (0.2-0.9); Monocytes % 7.6 %; Neutrophils # 1.77 10^3/uL (1.8-7.7); Neutrophils % 44.9 %; Nucleated Red Blood Cells % 0.5 %; Platelet Count 152 10^3/cmm (157-399); Red Blood Count 2.95 10^6/uL (3.85-5.65); Red Cell Distribution Width 13.2 % (12.1-15.1); White Blood Count 3.94 10^3/uL (3.29-11.43)
[2024-04-21 10:45] LABS: Reticulocyte % 1.7 % (0.5-2.0)
[2024-04-21 11:05] LABS: Erythrocyte Sedimentation Rate 19 mm/hr (0-10)
[2024-04-21 11:06] LABS: Alanine Aminotransferase 11 U/L (0-41); Albumin Level 4.5 g/dL (3.5-5.2); Alkaline Phosphatase 74 U/L (40-130); Anion Gap 16.6 (5-19); Aspartate Amino Transferase 14 U/L (0-40); Blood Urea Nitrogen 12 mg/dL (8-23); Calcium 8.9 mg/dL (8.5-10.5); Carbon Dioxide 26 mmol/L (22-29); Chloride 101 mmol/L (98-107); Ferritin 750 ng/mL (30-400); Globulin 2.6 g/dL (1.3-4.6); Glomerular Filtration Rate 112.8 mL/min (90-130); Glucose 109 mg/dL (65-115); Iron 173 ug/dL (59-158); Lactate Dehydrogenase 199 U/L (135-225); Osmolality Calculated 288 mOsm/kg (285-295); Potassium 4.6 mmol/L (3.5-5.1); Sodium 139 mmol/L (136-145); Total Bilirubin 0.5 mg/dL (0.15-1.2); Total Iron Binding Capacity 266 mcg/dl; Total Protein 7.1 g/dL (6.6-8.7); Unsaturated Iron Binding 93 ug/dL (112-347)
[2024-04-21 11:19] LABS: Vitamin B12 325 pg/mL (232-1245)
[2024-04-21 11:20] LABS: Folate Level 6.9 ng/mL (4.5-32.2)
[2024-04-21 11:44] LABS: LAB Peripheral Smear Sent for Review
[2024-04-22 06:34] LABS: PROTEIN, TOTAL 6.6 g/dL (6.1-8.1)
[2024-04-23 07:41] LABS: Anti-Nuclear Antibody Screen POSITIVE (NEGATIVE)
[2024-04-24 08:14] LABS: ABNORMAL PROTEIN BAND 1 0.5 g/dL (NONE DETECTED); ALBUMIN 3.8 g/dL (3.8-4.8); ALPHA 1 GLOBULIN 0.3 g/dL (0.2-0.3); ALPHA 2 GLOBULIN 0.7 g/dL (0.5-0.9); BETA 1 GLOBULIN 0.4 g/dL (0.4-0.6); BETA 2 GLOBULIN 0.6 g/dL (0.2-0.5); GAMMA GLOBULIN 0.8 g/dL (0.8-1.7)
[2024-04-25 15:34] LABS: Copper Level 84 mcg/dL (70-175)
== END 2024-04-25 23:59 | disposition home or self-care (01) ==
PROVIDERS: PCP Family Medicine; Visit Provider Internal Medicine Medical Oncology
DX: D61.818 Other pancytopenia (principal)
CPT/HCPCS: 36415; 80053; 82525; 82607; 82728; 82746; 83540; 83550; 83615; 84155; 84165; 85025; 85045; 85651; 86038; 86140; 86334; 99204

== ENCOUNTER 2024-05-19 07:44 | Oncology outpatient (recurring) (ONCR) | payer OTHER, SELFPAY ==
--- NOTE | 2024-05-19 08:00 | CT_ITS ---
WS: [email or web address] CTA HEAD AND NECK TECHNIQUE: Contrast enhanced CTA of the head and neck with coronal and sagittal reformatted images an d maximum intensity projection (MIP) images. NASCET criteria utilized. CLINICAL INFORMATION: E78.5 - Hyperlipidemia, unspecified COMPARISON: None. DLP: 1413.[address] scans at [facility] use at least one of these dose optimization techniques: automated e xposure control; mA and/or kV adjustment per patient size (includes targeted exams where dose is matc hed to clinical indication); or iterative reconstruction. FINDINGS: Lung apices are well aerated. Aortic arch calcification. Proximal subclavian arteries are patent. Somewhat enlarged and nodular thy roid. Moderate spondylitic changes cervical spine. RIGHT: RIGHT common carotid artery is patent. Calcified atheromatous plaque RIGHT carotid bulb extend ing into the ICA. Stenosis measures approximately 55 to 60% extending over approximately 1 cm. RIGHT ICA remains patent to the skull base. LEFT: LEFT common carotid artery is patent. No significant LEFT ICA stenosis. Mild LEFT carotid bulb calcification. LEFT ICA is patent to the skull base. INTRACRANIAL CTA: Both ICAs are patent at the skull base. Cavernous carotid calcification. Hypoplastic RIGHT A1 segme nt. Normal vascularity to the [place] and MCA territories bilaterally. No evidence of proximal ICA stenos is. CT/CT angio headneck* [id number] IMPRESSION: 1. RIGHT proximal ICA stenosis measures 55 to 60% 2. No significant LEFT ICA stenosis. 3. RIGHT dominant vertebral artery. Smaller but patent LEFT vertebral artery. 4. Unremarkable intracranial CTA.
[2024-05-19] MEDS: iohexol 350 mg/mL 500 mL Btl (per mL) IV (08:13)
== END 2024-05-25 23:59 | disposition home or self-care (01) ==
PROVIDERS: PCP Family Medicine; Visit Provider Internal Medicine Medical Oncology
DX: E78.5 Hyperlipidemia, unspecified (principal); I25.10 Atherosclerotic heart disease of native coronary artery without angina pectoris; G20.C Parkinsonism, unspecified; G25.2 Other specified forms of tremor; R53.1 Weakness; I25.810 Atherosclerosis of coronary artery bypass graft(s) without angina pectoris; I45.6 Pre-excitation syndrome; I65.21 Occlusion and stenosis of right carotid artery
CPT/HCPCS: 70496; 70498

== ENCOUNTER 2024-06-13 11:04 | Outpatient (CLI) | payer OTHER, SELFPAY ==
[2024-06-16 03:14] LABS: PROTEIN, TOTAL, 24 HR UR 240 mg/24 h (<150); Protein/Creatinine Ratio 0.185 (<0.100); Protein/Creatinine Ratio 185 mg/g creat (<100)
== END 2024-06-13 11:05 | disposition home or self-care (01) ==
PROVIDERS: PCP Family Medicine; Visit Provider Internal Medicine Medical Oncology
DX: D61.818 Other pancytopenia (principal)
CPT/HCPCS: 84156; 84166

== ENCOUNTER 2024-06-18 12:07 | Oncology outpatient (recurring) (ONCR) | payer OTHER, SELFPAY ==
[2024-06-11 12:45] LABS: Basophils % 0.3 %; Eosinophils # 0.2 10^3/uL (0.0-0.8); Hematocrit 32.1 % (37-53); Lymphocytes # 1.3 10^3/uL (0.8-4.8); Lymphocytes % 38.1 %; Mean Corpuscular HGB Conc 33.6 g/dL (30-55); Mean Corpuscular Hemoglobin 38.6 pg (27-33); Mean Corpuscular Volume 114.6 fl (82-101); Mean Platelet Volume 12.3 fL (7.4-10.4); Monocytes # 0.3 10^3/uL (0.2-0.9); Monocytes % 8.1 %; Neutrophils # 1.59 10^3/uL (1.8-7.7); Neutrophils % 46.2 %; Nucleated Red Blood Cells % 0 %; Platelet Count 143 10^3/cmm (157-399); Red Cell Distribution Width 13.4 % (12.1-15.1); White Blood Count 3.44 10^3/uL (3.29-11.43)
[2024-06-11 13:18] LABS: Alanine Aminotransferase < 5 U/L (0-41); Albumin Level 4.4 g/dL (3.5-5.2); Alkaline Phosphatase 69 U/L (40-130); Aspartate Amino Transferase 11 U/L (0-40); Blood Urea Nitrogen 12 mg/dL (8-23); Calcium 8.8 mg/dL (8.5-10.5); Carbon Dioxide 30 mmol/L (22-29); Chloride 100 mmol/L (98-107); Globulin 2.6 g/dL (1.3-4.6); Glomerular Filtration Rate 84.4 mL/min (90-130); Glucose 124 mg/dL (65-115); Lactate Dehydrogenase 159 U/L (135-225); Osmolality Calculated 287 mOsm/kg (285-295); Sodium 138 mmol/L (136-145); Total Bilirubin 0.5 mg/dL (0.15-1.2)
[2024-06-11 13:24] LABS: Erythrocyte Sedimentation Rate 8 mm/hr (0-10)
[2024-06-11 13:31] LABS: Vitamin B12 636 pg/mL (232-1245)
[2024-06-11 13:43] LABS: Immunoglobulin IGA 389 mg/dL (70-400); Immunoglobulin IGG 788 mg/dL (700-1600); Immunoglobulin IGM 204 mg/dL (40-230)
[2024-06-13 09:59] LABS: PROTEIN, TOTAL 6.4 g/dL (6.1-8.1)
[2024-06-15 09:30] LABS: ABNORMAL PROTEIN BAND 1 0.4 g/dL (NONE DETECTED); ALBUMIN 3.8 g/dL (3.8-4.8); ALPHA 1 GLOBULIN 0.3 g/dL (0.2-0.3); ALPHA 2 GLOBULIN 0.6 g/dL (0.5-0.9); BETA 1 GLOBULIN 0.4 g/dL (0.4-0.6); BETA 2 GLOBULIN 0.6 g/dL (0.2-0.5); GAMMA GLOBULIN 0.7 g/dL (0.8-1.7)
[2024-06-16 07:19] LABS: Methylmalonic Acid 93 nmol/L (69-390)
== END 2024-06-25 23:59 | disposition home or self-care (01) ==
PROVIDERS: Internal Medicine Medical Oncology; PCP Family Medicine; Visit Provider Internal Medicine Hematology & Oncology
DX: D61.818 Other pancytopenia (principal); F17.210 Nicotine dependence, cigarettes, uncomplicated; M54.9 Dorsalgia, unspecified; G89.29 Other chronic pain; R26.81 Unsteadiness on feet
CPT/HCPCS: 36415; 80053; 82607; 82784; 83615; 83921; 84155; 84165; 85025; 85651; 86140; 99214

== ENCOUNTER 2024-07-09 12:16 | Oncology outpatient (recurring) (ONCR) | payer OTHER, SELFPAY ==
--- NOTE | 2024-07-09 12:45 | CT_ITS ---
WS: [email or web address] CT HEAD WITH AND WITHOUT CONTRAST HISTORY: E78.5 - Hyperlipidemia, unspecified TECHNIQUE: Noncontrast 2.5 mm axial images obtained from the vertex to the skull base. Additional uzma ging performed at 2.5 mm axial images status post IV contrast. Bone and soft tissue windows are revie wed. All CT scans at [facility] use at least one of these dose optimization techniques: autom ated exposure control; mA and/or kV adjustment per patient size (includes targeted exams where dose i s matched to clinical indication); or iterative reconstruction. CONTRAST: Omnipaque 350; 100 mL IV. DLP: 2014.38 mGy.cm COMPARISON: 05/19/2024 No acute intracranial hemorrhage, edema or midline shift. Moderate symmetric bilateral atrophy and mi ld small vessel disease. No infarct. No enhancing mass or vascular malformations identified. Dural venous sinuses are normally enhancing. Visualized [facility] [place] [facility] [place] is unremarkable. Paranasal sinuses as visualized: Mild mucoperiosteal thickening in the ethmoid air cells. No air-flui d levels. Mastoid air cells: Clear. Calvarium and scalp: Intact. CT/CT head wo/w con [id number] IMPRESSION: 1. No acute intracranial hemorrhage or edema. 2. Moderate symmetric atrophy with mild small vessel disease. 3. Stable head CT since 05/19/2024. 4. No enhancing mass.
[2024-07-09] MEDS: iohexol 350 mg/mL 500 mL Btl (per mL) IV (12:59)
== END 2024-07-25 23:59 | disposition home or self-care (01) ==
LOC: RAD 12:16 → ONCMED 07-10 08:17
PROVIDERS: PCP Family Medicine; Visit Provider Psychiatry & Neurology Neurology
DX: D61.818 Other pancytopenia (principal); E78.5 Hyperlipidemia, unspecified; I25.10 Atherosclerotic heart disease of native coronary artery without angina pectoris; G20.C Parkinsonism, unspecified; G25.2 Other specified forms of tremor; R25.1 Tremor, unspecified; R53.1 Weakness; I25.810 Atherosclerosis of coronary artery bypass graft(s) without angina pectoris; I45.6 Pre-excitation syndrome
CPT/HCPCS: 70470

== ENCOUNTER → 2024-08-03 10:00 | Outpatient (BNVA) | payer OTHER, SELFPAY | PROVIDERS: PCP Family Medicine; Visit Provider Nurse Practitioner Family | DX: I11.0 Hypertensive heart disease with heart failure (principal); I50.22 Chronic systolic (congestive) heart failure; Z95.1 Presence of aortocoronary bypass graft; Z95.0 Presence of cardiac pacemaker; F17.210 Nicotine dependence, cigarettes, uncomplicated | CPT/HCPCS: 99214 ==

== ENCOUNTER → 2024-08-05 09:51 | Outpatient (BNVA) | payer OTHER, SELFPAY | PROVIDERS: PCP Family Medicine; Visit Provider Internal Medicine Cardiovascular Disease | DX: Z45.018 Encounter for adjustment and management of other part of cardiac pacemaker (principal) | CPT/HCPCS: 93296 ==

== ENCOUNTER 2024-08-13 11:58 | Oncology outpatient (recurring) (ONCR) | payer OTHER, SELFPAY ==
[2024-08-07 11:57] LABS: Basophils % 0.3 %; Eosinophils # 0.3 10^3/uL (0.0-0.8); Eosinophils % 6.8 %; Hematocrit 32.2 % (37-53); Lymphocytes # 1.5 10^3/uL (0.8-4.8); Mean Corpuscular HGB Conc 32.9 g/dL (30-55); Mean Corpuscular Volume 115.4 fl (82-101); Mean Platelet Volume 12.6 fL (7.4-10.4); Monocytes # 0.3 10^3/uL (0.2-0.9); Monocytes % 7.9 %; Neutrophils # 1.61 10^3/uL (1.8-7.7); Neutrophils % 43.7 %; Nucleated Red Blood Cells % 0 %; Platelet Count 138 10^3/cmm (157-399); Red Blood Count 2.79 10^6/uL (3.85-5.65); Red Cell Distribution Width 13.2 % (12.1-15.1); White Blood Count 3.68 10^3/uL (3.29-11.43)
[2024-08-07 12:23] LABS: Alanine Aminotransferase 6 U/L (0-41); Albumin Level 4.5 g/dL (3.5-5.2); Alkaline Phosphatase 69 U/L (40-130); Anion Gap 15.1 (5-19); Aspartate Amino Transferase 11 U/L (0-40); Blood Urea Nitrogen 12 mg/dL (8-23); Calcium 9.2 mg/dL (8.5-10.5); Carbon Dioxide 28 mmol/L (22-29); Chloride 97 mmol/L (98-107); Globulin 2.8 g/dL (1.3-4.6); Glomerular Filtration Rate 112.8 mL/min (90-130); Glucose 99 mg/dL (65-115); Osmolality Calculated 282 mOsm/kg (285-295); Potassium 4.1 mmol/L (3.5-5.1); Sodium 136 mmol/L (136-145); Total Bilirubin 0.5 mg/dL (0.15-1.2); Total Protein 7.3 g/dL (6.6-8.7)
[2024-08-07 12:48] LABS: Immunoglobulin IGA 442 mg/dL (70-400); Immunoglobulin IGG 866 mg/dL (700-1600); Immunoglobulin IGM 215 mg/dL (40-230)
[2024-08-10 10:54] LABS: KAPPA LIGHT CHAIN, FREE, SERUM 28.7 mg/L (3.3-19.4); KAPPA/LAMBDA LIGHT CHAINS FREE 1.98 (0.26-1.65); LAMBDA LIGHT CHAIN, FREE, SERU 14.5 mg/L (5.7-26.3)
[2024-08-10 21:28] LABS: ABNORMAL PROTEIN BAND 1 0.4 g/dL (NONE DETECTED); ALBUMIN 4.1 g/dL (3.8-4.8); ALPHA 1 GLOBULIN 0.3 g/dL (0.2-0.3); ALPHA 2 GLOBULIN 0.7 g/dL (0.5-0.9); BETA 1 GLOBULIN 0.4 g/dL (0.4-0.6); BETA 2 GLOBULIN 0.6 g/dL (0.2-0.5); GAMMA GLOBULIN 0.8 g/dL (0.8-1.7)
[2024-08-13 09:04] LABS: PROTEIN, TOTAL, 24 HR UR 150 mg/24 h (<150); Protein/Creatinine Ratio 150 mg/g creat (<100)
[2024-08-20 08:59] LABS: ALBUMIN 100 %; ALPHA-1-GLOBULINS 0 %; ALPHA-2-GLOBULINS 0 %; BETA GLOBULINS 0 %; GAMMA GLOBULINS 0 %
== END 2024-08-25 23:59 | disposition home or self-care (01) ==
PROVIDERS: Nurse Practitioner Family; PCP Family Medicine; Visit Provider Psychiatry & Neurology Neurology
DX: G20.C Parkinsonism, unspecified; D61.818 Other pancytopenia; D89.2 Hypergammaglobulinemia, unspecified
CPT/HCPCS: 36415; 80053; 82784; 83883; 84155; 84156; 84165; 84166; 85025; 99213

== ENCOUNTER → 2024-09-01 14:58 | Outpatient (BNVA) | payer OTHER, SELFPAY | PROVIDERS: PCP Family Medicine; Visit Provider Psychiatry & Neurology Neurology | DX: G20.A1 Parkinson's disease without dyskinesia, without mention of fluctuations; G25.2 Other specified forms of tremor | CPT/HCPCS: 99212 ==

== ENCOUNTER 2024-09-24 11:46 | Outpatient (CLI) | payer OTHER, SELFPAY ==
--- NOTE | 2024-09-24 11:48 | XR_ITS ---
WS: [email or web address] Exam: XR bone survey* [id number] Date/Time of Exam: 09/24/2024 12:18 PM Reason For Exam: paraproteinemia There was no sign of osteolytic or osteoblastic bone disease involving the components of the axial or appendicular skeleton. No significant abnormalities seen in the chest abdomen or pelvis. Moderate de generative changes noted throughout the cervical thoracic and lumbar spine. 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 XR/XR bone survey* [id number] IMPRESSION: 1. No osteoblastic or osteolytic changes identified in the axial or appendicula r skeleton.
== END 2024-09-24 11:47 | disposition home or self-care (01) ==
LOC: RAD 11:47
PROVIDERS: PCP Family Medicine; Visit Provider Internal Medicine
DX: D89.2 Hypergammaglobulinemia, unspecified (principal); M47.892 Other spondylosis, cervical region; M47.896 Other spondylosis, lumbar region; M47.894 Other spondylosis, thoracic region; Z95.828 Presence of other vascular implants and grafts
CPT/HCPCS: 77075

== ENCOUNTER 2024-09-24 13:03 | Oncology outpatient (recurring) (ONCR) | payer OTHER, SELFPAY ==
[2024-09-24 14:04] LABS: Eosinophils # 0.2 10^3/uL (0.0-0.8); Eosinophils % 5.2 %; Lymphocytes # 1.5 10^3/uL (0.8-4.8); Lymphocytes % 38.6 %; Mean Corpuscular HGB Conc 34.1 g/dL (30-55); Mean Corpuscular Hemoglobin 39.2 pg (27-33); Mean Corpuscular Volume 115.1 fl (82-101); Mean Platelet Volume 12.5 fL (7.4-10.4); Monocytes # 0.3 10^3/uL (0.2-0.9); Monocytes % 8.5 %; Neutrophils # 1.83 10^3/uL (1.8-7.7); Neutrophils % 47.4 %; Nucleated Red Blood Cells % 0 %; Platelet Count 133 10^3/cmm (157-399); Red Blood Count 2.78 10^6/uL (3.85-5.65); Red Cell Distribution Width 13.9 % (12.1-15.1); White Blood Count 3.86 10^3/uL (3.29-11.43)
[2024-09-24 14:22] LABS: Alanine Aminotransferase < 5 U/L (0-41); Albumin Level 4.3 g/dL (3.5-5.2); Alkaline Phosphatase 67 U/L (40-130); Anion Gap 14.2 (5-19); Aspartate Amino Transferase 15 U/L (0-40); Blood Urea Nitrogen 14 mg/dL (8-23); Carbon Dioxide 27 mmol/L (22-29); Chloride 100 mmol/L (98-107); Globulin 2.6 g/dL (1.3-4.6); Glomerular Filtration Rate 96.7 mL/min (90-130); Glucose 117 mg/dL (65-115); Immunoglobulin IGA 437 mg/dL (70-400); Immunoglobulin IGG 826 mg/dL (700-1600); Immunoglobulin IGM 209 mg/dL (40-230); Osmolality Calculated 286 mOsm/kg (285-295); Potassium 4.2 mmol/L (3.5-5.1); Sodium 137 mmol/L (136-145); Total Bilirubin 0.6 mg/dL (0.15-1.2); Total Protein 6.9 g/dL (6.6-8.7)
[2024-09-25 14:25] LABS: KAPPA LIGHT CHAIN, FREE, SERUM 27.6 mg/L (3.3-19.4); KAPPA/LAMBDA LIGHT CHAINS FREE 2.11 (0.26-1.65); LAMBDA LIGHT CHAIN, FREE, SERU 13.1 mg/L (5.7-26.3)
[2024-09-25 20:10] LABS: ABNORMAL PROTEIN BAND 1 0.5 g/dL (NONE DETECTED); ALBUMIN 4.1 g/dL (3.8-4.8); ALPHA 1 GLOBULIN 0.3 g/dL (0.2-0.3); ALPHA 2 GLOBULIN 0.7 g/dL (0.5-0.9); BETA 1 GLOBULIN 0.4 g/dL (0.4-0.6); BETA 2 GLOBULIN 0.7 g/dL (0.2-0.5); GAMMA GLOBULIN 0.8 g/dL (0.8-1.7)
== END 2024-09-25 23:59 | disposition home or self-care (01) ==
LOC: ONCMED 13:03
PROVIDERS: Internal Medicine; PCP Family Medicine; Visit Provider Psychiatry & Neurology Neurology
DX: D61.818 Other pancytopenia (principal)
CPT/HCPCS: 36415; 80053; 82784; 83883; 84155; 84165; 85025; 86334

== ENCOUNTER 2024-10-01 12:28 | Oncology outpatient (recurring) (ONCR) | payer OTHER, SELFPAY ==
[2024-09-28 16:18] LABS: CREATININE, 24 HOUR URINE 1.67 g/24 h (0.50-2.15); PROTEIN, TOTAL, 24 HR UR 341 mg/24 h (<150); Protein/Creatinine Ratio 0.204 (<0.100); Protein/Creatinine Ratio 204 mg/g creat (<100)
[2024-10-01 15:39] LABS: ALBUMIN 100 %; ALPHA-1-GLOBULINS 0 %; ALPHA-2-GLOBULINS 0 %; BETA GLOBULINS 0 %; GAMMA GLOBULINS 0 %
== END 2024-10-23 23:59 | disposition home or self-care (01) ==
PROVIDERS: Internal Medicine; PCP Family Medicine; Visit Provider Psychiatry & Neurology Neurology
DX: D61.818 Other pancytopenia (principal); I11.0 Hypertensive heart disease with heart failure; E78.5 Hyperlipidemia, unspecified; F17.210 Nicotine dependence, cigarettes, uncomplicated; I25.10 Atherosclerotic heart disease of native coronary artery without angina pectoris; I50.9 Heart failure, unspecified; G20.A1 Parkinson's disease without dyskinesia, without mention of fluctuations; G31.89 Other specified degenerative diseases of nervous system; R26.2 Difficulty in walking, not elsewhere classified; D72.819 Decreased white blood cell count, unspecified; D64.9 Anemia, unspecified; M54.9 Dorsalgia, unspecified; Z95.1 Presence of aortocoronary bypass graft; Z95.0 Presence of cardiac pacemaker; D69.6 Thrombocytopenia, unspecified
CPT/HCPCS: 84156; 84166; 99213

== ENCOUNTER → 2024-11-04 09:52 | Outpatient (BNVA) | payer OTHER, SELFPAY | PROVIDERS: PCP Family Medicine; Visit Provider Internal Medicine | DX: Z45.018 Encounter for adjustment and management of other part of cardiac pacemaker (principal) | CPT/HCPCS: 93296 ==

== ENCOUNTER → 2024-12-15 15:00 | Outpatient (BNVA) | payer OTHER, SELFPAY | PROVIDERS: PCP Family Medicine; Visit Provider Psychiatry & Neurology Neurology | DX: G20.A1 Parkinson's disease without dyskinesia, without mention of fluctuations (principal); G25.2 Other specified forms of tremor | CPT/HCPCS: 99212 ==

== ENCOUNTER 2025-01-20 13:24 | Oncology outpatient (recurring) (ONCR) | payer OTHER, SELFPAY ==
[2025-01-13 10:08] LABS: Eosinophils # 0.3 10^3/uL (0.0-0.8); Eosinophils % 8.9 %; Hematocrit 30.8 % (37-53); Lymphocytes # 1.2 10^3/uL (0.8-4.8); Lymphocytes % 33.9 %; Mean Corpuscular HGB Conc 34.4 g/dL (30-55); Mean Corpuscular Hemoglobin 40.9 pg (27-33); Mean Corpuscular Volume 118.9 fl (82-101); Mean Platelet Volume 12.1 fL (7.4-10.4); Monocytes # 0.3 10^3/uL (0.2-0.9); Monocytes % 8.6 %; Neutrophils # 1.68 10^3/uL (1.8-7.7); Neutrophils % 48.3 %; Nucleated Red Blood Cells % 0 %; Platelet Count 172 10^3/cmm (157-399); Red Blood Count 2.59 10^6/uL (3.85-5.65); Red Cell Distribution Width 14.1 % (12.1-15.1); White Blood Count 3.48 10^3/uL (3.29-11.43)
[2025-01-13 10:11] LABS: Reticulocyte % 2.1 % (0.5-2.0)
[2025-01-13 10:30] LABS: Alanine Aminotransferase 8 U/L (0-41); Albumin Level 4.2 g/dL (3.5-5.2); Alkaline Phosphatase 79 U/L (40-130); Aspartate Amino Transferase 15 U/L (0-40); Blood Urea Nitrogen 12 mg/dL (8-23); Calcium 8.9 mg/dL (8.5-10.5); Carbon Dioxide 25 mmol/L (22-29); Chloride 99 mmol/L (98-107); Ferritin 840 ng/mL (30-400); Globulin 2.9 g/dL (1.3-4.6); Glomerular Filtration Rate 96.4 mL/min (90-130); Glucose 96 mg/dL (65-115); Iron 167 ug/dL (59-158); Lactate Dehydrogenase 174 U/L (135-225); Osmolality Calculated 284 mOsm/kg (285-295); Percent Saturation 62.3 % (20-50); Sodium 137 mmol/L (136-145); Total Bilirubin 0.5 mg/dL (0.15-1.2); Total Iron Binding Capacity 268 mcg/dl; Total Protein 7.1 g/dL (6.6-8.7); Unsaturated Iron Binding 101 ug/dL (112-347)
[2025-01-13 10:42] LABS: LAB Peripheral Smear Sent for Review
[2025-01-13 10:45] LABS: Vitamin B12 369 pg/mL (232-1245)
[2025-01-13 10:54] LABS: Immunoglobulin IGA 481 mg/dL (70-400); Immunoglobulin IGG 855 mg/dL (700-1600); Immunoglobulin IGM 204 mg/dL (40-230)
[2025-01-13 11:12] LABS: Folate Level > 20.0 ng/mL (4.5-32.2)
[2025-01-14 11:20] LABS: KAPPA/LAMBDA LIGHT CHAINS FREE 1.93 (0.26-1.65); LAMBDA LIGHT CHAIN, FREE, SERU 14.5 mg/L (5.7-26.3)
[2025-01-16 12:19] LABS: ABNORMAL PROTEIN BAND 1 0.5 g/dL (NONE DETECTED); ALBUMIN 4.3 g/dL (3.8-4.8); ALPHA 1 GLOBULIN 0.3 g/dL (0.2-0.3); ALPHA 2 GLOBULIN 0.6 g/dL (0.5-0.9); BETA 1 GLOBULIN 0.4 g/dL (0.4-0.6); BETA 2 GLOBULIN 0.6 g/dL (0.2-0.5); GAMMA GLOBULIN 0.7 g/dL (0.8-1.7)
== END 2025-01-23 23:59 | disposition home or self-care (01) ==
PROVIDERS: Internal Medicine; PCP Family Medicine; Visit Provider Psychiatry & Neurology Neurology
DX: D61.818 Other pancytopenia (principal); D64.9 Anemia, unspecified; I50.22 Chronic systolic (congestive) heart failure; F17.210 Nicotine dependence, cigarettes, uncomplicated; I11.0 Hypertensive heart disease with heart failure; G20.A1 Parkinson's disease without dyskinesia, without mention of fluctuations; R26.2 Difficulty in walking, not elsewhere classified; Z95.0 Presence of cardiac pacemaker; E78.5 Hyperlipidemia, unspecified; I25.10 Atherosclerotic heart disease of native coronary artery without angina pectoris; G31.89 Other specified degenerative diseases of nervous system; G25.2 Other specified forms of tremor
CPT/HCPCS: 36415; 80053; 80503; 82607; 82728; 82746; 82784; 83010; 83540; 83550; 83615; 83883; 84155; 84165; 85025; 85045; 86140; 86880; 99212; 99213

== ENCOUNTER → 2025-02-04 11:21 | Outpatient (BNVA) | payer OTHER, SELFPAY | PROVIDERS: PCP Family Medicine; Visit Provider Internal Medicine Cardiovascular Disease | DX: I25.10 Atherosclerotic heart disease of native coronary artery without angina pectoris (principal); Z95.0 Presence of cardiac pacemaker; I11.0 Hypertensive heart disease with heart failure; I50.22 Chronic systolic (congestive) heart failure; E78.5 Hyperlipidemia, unspecified; F17.210 Nicotine dependence, cigarettes, uncomplicated | CPT/HCPCS: 99214 ==

== ENCOUNTER 2025-04-21 13:07 | Oncology outpatient (recurring) (ONCR) | payer OTHER, SELFPAY ==
[2025-04-14 11:53] LABS: Hematocrit 29.9 % (37-53); Hemoglobin 10.10 g/dL (11.27-16.99); Mean Corpuscular HGB Conc 33.8 g/dL (30-55); Mean Corpuscular Hemoglobin 40.6 pg (27-33); Mean Corpuscular Volume 120.1 fl (82-101); Nucleated Red Blood Cells % 0 %; Platelet Count 190 10^3/cmm (157-399); Red Blood Count 2.49 10^6/uL (3.85-5.65); White Blood Count 3.30 10^3/uL (3.29-11.43)
[2025-04-14 12:15] LABS: Alanine Aminotransferase 14 U/L (0-41); Albumin Level 4.2 g/dL (3.5-5.2); Alkaline Phosphatase 78 U/L (40-130); Anion Gap 14.0 (5-19); Aspartate Amino Transferase 16 U/L (0-40); Blood Urea Nitrogen 14 mg/dL (8-23); Calcium 8.6 mg/dL (8.5-10.5); Carbon Dioxide 28 mmol/L (22-29); Chloride 99 mmol/L (98-107); Ferritin 808 ng/mL (30-400); Globulin 2.8 g/dL (1.3-4.6); Glucose 124 mg/dL (65-115); Iron 143 ug/dL (59-158); Osmolality Calculated 286 mOsm/kg (285-295); Potassium 4.0 mmol/L (3.5-5.1); Sodium 137 mmol/L (136-145); Total Iron Binding Capacity 239 mcg/dl; Total Protein 7.0 g/dL (6.6-8.7); Unsaturated Iron Binding 96 ug/dL (112-347)
[2025-04-14 12:30] LABS: Vitamin B12 320 pg/mL (232-1245)
[2025-04-14 12:37] LABS: Slide Review Slide Review Perform
== END 2025-04-25 23:59 | disposition home or self-care (01) ==
PROVIDERS: Internal Medicine; PCP Family Medicine; Visit Provider Nurse Practitioner
DX: D61.818 Other pancytopenia (principal); F17.210 Nicotine dependence, cigarettes, uncomplicated; K59.00 Constipation, unspecified
CPT/HCPCS: 36415; 80053; 82607; 82728; 82746; 83010; 83540; 83550; 83615; 85025; 85045; 99214

== ENCOUNTER → 2025-05-05 11:27 | Outpatient (BNVA) | payer OTHER, SELFPAY | PROVIDERS: PCP Family Medicine; Visit Provider Internal Medicine Cardiovascular Disease | DX: Z45.018 Encounter for adjustment and management of other part of cardiac pacemaker (principal) | CPT/HCPCS: 93296 ==

== ENCOUNTER 2025-07-21 11:42 | Oncology outpatient (recurring) (ONCR) | payer OTHER, SELFPAY ==
[2025-07-14 11:15] LABS: Hematocrit 28.7 % (37-53); Hemoglobin 9.90 g/dL (11.27-16.99); Mean Corpuscular HGB Conc 34.5 g/dL (30-55); Mean Corpuscular Hemoglobin 42.1 pg (27-33); Mean Corpuscular Volume 122.1 fl (82-101); Nucleated Red Blood Cells % 0.6 %; Platelet Count 201 10^3/cmm (157-399); Red Blood Count 2.35 10^6/uL (3.85-5.65); White Blood Count 3.17 10^3/uL (3.29-11.43)
[2025-07-14 11:38] LABS: Slide Review Slide Review Perform
[2025-07-14 11:45] LABS: Alanine Aminotransferase 9 U/L (0-41); Albumin Level 4.4 g/dL (3.5-5.2); Alkaline Phosphatase 81 U/L (40-130); Anion Gap 14.2 (5-19); Aspartate Amino Transferase 15 U/L (0-40); Blood Urea Nitrogen 10 mg/dL (8-23); Calcium 9.0 mg/dL (8.5-10.5); Carbon Dioxide 28 mmol/L (22-29); Chloride 100 mmol/L (98-107); Ferritin 871 ng/mL (30-400); Globulin 2.9 g/dL (1.3-4.6); Glucose 126 mg/dL (65-115); Iron 173 ug/dL (59-158); Osmolality Calculated 287 mOsm/kg (285-295); Potassium 4.2 mmol/L (3.5-5.1); Sodium 138 mmol/L (136-145); Total Iron Binding Capacity 249 mcg/dl; Total Protein 7.3 g/dL (6.6-8.7); Unsaturated Iron Binding 76 ug/dL (112-347)
[2025-07-14 11:59] LABS: Vitamin B12 387 pg/mL (232-1245)
[2025-07-15 15:55] LABS: KAPPA LIGHT CHAIN, FREE, SERUM 33.6 mg/L (3.3-19.4); KAPPA/LAMBDA LIGHT CHAINS FREE 2.15 (0.26-1.65); LAMBDA LIGHT CHAIN, FREE, SERU 15.6 mg/L (5.7-26.3)
== END 2025-07-25 23:59 | disposition home or self-care (01) ==
PROVIDERS: PCP Family Medicine; Visit Provider Nurse Practitioner
DX: D61.818 Other pancytopenia; F17.210 Nicotine dependence, cigarettes, uncomplicated; Z53.9 Procedure and treatment not carried out, unspecified reason
CPT/HCPCS: 36415; 80053; 82607; 82728; 82746; 83540; 83550; 83615; 83883; 85025; 85045; 99213